=== PATIENT | male | born 1985 | race Caucasian/White ===

== ENCOUNTER → 2017-03-20 | Outpatient (REF) | payer BC | LOC: M SMT 13:15 | DX: Z30.09 Encounter for other general counseling and advice on contraception (principal) ==

== ENCOUNTER → 2017-04-22 | Outpatient (REF) | payer BC ==
[2017-04-22 09:44] LABS: SEMEN APPEARANCE OPAQUE (OPAQUE); SEMEN VISCOSITY LIQUID (LIQUID); SEMEN VOLUME 2.5 ml (4.0-5.0); SEMEN pH 8.5 (7.0-8.0)
[2017-04-22 09:45] LABS: IMMMOTILE SPERM CENTRIFUGED PRESENT (ABSENT); IMMOTILE SPERM PRESENT (ABSENT); MOTILE SPERM ABSENT (ABSENT); MOTILE SPERM CENTRIFUGED ABSENT (ABSENT); WBC CONCENTRATION <=1 M/ml (<=1 M/ml)
== END ==
LOC: M SMT 09:14
DX: Z30.09 Encounter for other general counseling and advice on contraception (principal)
CPT/HCPCS: 89321

== ENCOUNTER → 2017-07-19 | Outpatient (REF) | payer BC ==
[2017-07-19 10:13] LABS: IMMMOTILE SPERM CENTRIFUGED ABSENT (ABSENT); IMMOTILE SPERM ABSENT (ABSENT); MOTILE SPERM ABSENT (ABSENT); MOTILE SPERM CENTRIFUGED ABSENT (ABSENT); SEMEN APPEARANCE OPAQUE (OPAQUE); SEMEN VISCOSITY LIQUID (LIQUID); SEMEN VOLUME 2.5 ml (4.0-5.0); SEMEN pH 8.5 (7.0-8.0); SPERM ABNORMAL FORMS WBC'S NOTED; WBC CONCENTRATION >1 M/ml (<=1 M/ml)
== END ==
LOC: M SMT 09:57
DX: Z98.52 Vasectomy status (principal)
CPT/HCPCS: 89321

== ENCOUNTER 2017-12-02 11:23 | Day surgery (SDC) | payer BC ==
[2017-12-02] MEDS: LR 1,000 ML IV (11:50)
[2017-12-02] MEDS ORDERED: ROCURONIUM BROMIDE 50 MG/5 ML VIAL As Ordered (13:09)
[2017-12-02] MEDS ORDERED: LIDOCAINE 2% INJ 100 MG/5 ML SDV (FOR ANES.) As Ordered (13:09)
[2017-12-02] MEDS ORDERED: PROPOFOL 200 MG/20 ML VIAL As Ordered (13:09)
[2017-12-02] MEDS ORDERED: MIDAZOLAM INJ 2 MG/2 ML VIAL (J2250) As Ordered ×2 (13:10→15:09)
[2017-12-02] MEDS ORDERED: fentaNYL 100 MCG/2 ML INJECTION (J3010) As Ordered (13:10)
[2017-12-02] MEDS: CETACAINE SPRAY 5GM As Ordered (15:22)
[2017-12-02] MEDS ORDERED: SUGAMMADEX SODIUM 500 MG/5 ML VIAL (BRIDION) As Ordered (15:29)
[2017-12-02] MEDS ORDERED: ONDANSETRON 4MG/2ML VIAL (J2405) As Ordered (15:53)
[2017-12-02] MEDS ORDERED: dexameTHASONE 4 MG/ML 1ML VIAL (J1100) As Ordered (15:53)
[2017-12-02] MEDS ORDERED: KETOROLAC 60 MG/2 ML VIAL (J1885) As Ordered (15:53)
[2017-12-02] MEDS ORDERED: LR 1,000 ML IV ×2 (16:30→16:45)
[2017-12-02] MEDS ORDERED: NORCO, ANEXSIA 5/325MG TABLET (HYDROcodone/ACETAMINOPHEN) PO (16:45)
[2017-12-02] MEDS ORDERED: fentaNYL 100 MCG/2 ML INJECTION (J3010) IV (16:45)
[2017-12-02] MEDS ORDERED: ONDANSETRON 4MG/2ML VIAL (J2405) IV (16:45)
== END 2017-12-02 17:13 | disposition home or self-care (01) ==
LOC: M SDC 17:13
DX: D14.1 Benign neoplasm of larynx (principal); R06.83 Snoring
CPT/HCPCS: 31535

== ENCOUNTER 2018-02-24 06:45 | Day surgery (SDC) | payer BC ==
[~2018-02-24] VITALS: Ht 177.8 cm; Wt 81.6 kg
[2018-02-24] MEDS ORDERED: EXCETAB81 PO (07:45)
[2018-02-24] MEDS ORDERED: PROPOFOL 200 MG/20 ML VIAL As Ordered ONE ×3 (08:00→09:43)
[2018-02-24] MEDS ORDERED: dexameTHASONE 4 MG/ML 1ML VIAL (J1100) As Ordered ONE (08:00)
[2018-02-24] MEDS ORDERED: ROCURONIUM BROMIDE 50 MG/5 ML VIAL As Ordered ONE (08:00)
[2018-02-24] MEDS ORDERED: ONDANSETRON 4MG/2ML VIAL (J2405) As Ordered ONE (08:00)
[2018-02-24] MEDS ORDERED: LIDOCAINE 2% INJ 100 MG/5 ML SDV (FOR ANES.) As Ordered ONE (08:00)
[2018-02-24] MEDS ORDERED: fentaNYL 100 MCG/2 ML INJECTION (J3010) As Ordered ONE (08:00)
[2018-02-24] MEDS ORDERED: MIDAZOLAM INJ 2 MG/2 ML VIAL (J2250) As Ordered ONE (08:00)
[2018-02-24] MEDS ORDERED: SUGAMMADEX SODIUM 500 MG/5 ML VIAL (BRIDION) As Ordered ONE (08:07)
[2018-02-24] MEDS ORDERED: CETACAINE SPRAY 5GM As Ordered ONE (08:36)
[2018-02-24] MEDS ORDERED: OXYMETAZOLINE NASAL SPRAY (AFRIN) As Ordered ONE (08:47)
[2018-02-24] MEDS ORDERED: GLYCOPYRROLATE INJ 0.2 MG/ML 2 ML VIAL As Ordered ONE (08:50)
[2018-02-24] MEDS ORDERED: REMIFENTANIL 1MG 3ML VIAL As Ordered ONE (08:53)
[2018-02-24] MEDS ORDERED: NALOXONE INJ 0.4 MG/1 ML VIAL (J2310) As Ordered ONE (09:56)
[2018-02-24] MEDS ORDERED: fentaNYL 100 MCG/2 ML INJECTION (J3010) IV PRN (10:15)
[2018-02-24] MEDS ORDERED: PERCOCET 5MG/325MG TAB PO PRN (10:15)
[2018-02-24] MEDS ORDERED: ONDANSETRON 4MG/2ML VIAL (J2405) IV PRN (10:15)
[2018-02-24] MEDS ORDERED: HYDROMORPHONE HCL 0.5 MG/ 0.5 ML SYRINGE (J1170 PER 1) IV PRN (10:15)
[2018-02-24] MEDS ORDERED: LR 1,000 ML IV SCH ×2 (10:15)
[2018-02-24] MEDS ORDERED: SUCCINYLCHOLINE 100 MG/5 ML SYRINGE (J0330) As Ordered ONE (10:19)
[2018-02-24 11:55] VITALS: BP 12/88
--- NOTE | 2018-02-24 15:01 | RO ---
DATE OF PROCEDURE: 02/24/2018 PREOPERATIVE DIAGNOSIS: Laryngeal papillomatosis. POSTOPERATIVE DIAGNOSIS: Laryngeal papillomatosis. OPERATIVE PROCEDURE: Direct laryngoscopy and removal of papilloma with CO2 laser. SURGEON: Bravo Peres MD FAST FOOD SHIFT SUPERVISOR: FINDINGS: DESCRIPTION OF PROCEDURE: Under general anesthesia with the patient supine, the patient draped in the usual manner. I then inserted the laryngoscope using a dental guard. I positioned into place. I then hooked up the Rhodes-Venturi apparatus so the patient could be ventilated during the procedure. I then put on some wet sponges to prevent any damage to the skin with the laser. Once that was done, the microscope was positioned into place. Using the CO2 laser at 8 mcnulty continuous, then I lasered off the papilloma from the left vocal cord. There was a small amount on the right side. There was not a lot of papilloma tissue like there was in the past. The patient tolerated the procedure well. The patient was then transferred to the recovery room and extubated after I removed the laryngoscope and terminated the procedure.
== END 2018-02-24 12:05 | disposition home or self-care (01) ==
LOC: M SDC 06:45
PROVIDERS: ATTEND Otolaryngology
DX: D14.1 Benign neoplasm of larynx (principal); Z87.891 Personal history of nicotine dependence
CPT/HCPCS: 31535; J0330; J1100; J2250; J2310; J2405; J3010

== ENCOUNTER → 2018-05-08 | Outpatient (REF) | payer OTHER, BC ==
[~2018-05-08] MED LIST: AUGM875T28 PO; EXCETAB81 PO; OCUF0.25 OD
[2018-05-08 12:47] LABS: BASO % 0.8 % (0.0-1.0); EOS # 0.2 10^3/uL (0.0-0.50); EOS % 2.9 % (0.0-3.0); HEMATOCRIT 45.6 % (42.0-52.0); HEMOGLOBIN 15.5 g/dl (13.5-17.5); LYMPH # 2.4 10^3/uL (1.5-4.5); LYMPH % 46.2 % (24.0-44.0); MEAN CORPUSCULAR HEMOGLOBIN 29.3 pg (27.0-33.0); MEAN CORPUSCULAR VOLUME 86.2 fl (80.0-96.0); MONO # 0.7 10^3/uL (0.0-0.8); NEUTROPHILS # 1.9 10^3/uL (1.8-7.7); NEUTROPHILS % 37.1 % (36.0-66.0); PLATELET COUNT, AUTOMATED 262 10^3/uL (150-450); RED BLOOD COUNT 5.29 10^6/uL (4.30-6.10); WHITE BLOOD COUNT 5.2 10^3/uL (4.0-10.0)
[2018-05-08 12:52] LABS: ALBUMIN 4.7 GM/DL (3.2-5.2); ALT/SGPT 24 U/L (12-78); BILIRUBIN,TOTAL 0.9 MG/DL (0.2-1.0); BLOOD UREA NITROGEN 10 MG/DL (7-18); CALCIUM LEVEL 9.4 MG/DL (8.5-10.1); CARBON DIOXIDE LEVEL 29 MEQ/L (21-32); CHLORIDE LEVEL 104 MEQ/L (98-107); CREATININE FOR GFR 0.82 MG/DL (0.70-1.30); GLOMERULAR FILTRATION RATE > 60.0 (>60); GLUCOSE, FASTING 84 MG/DL (70-100); POTASSIUM SERUM 4.1 MEQ/L (3.5-5.1); SODIUM LEVEL 140 MEQ/L (136-145); TOTAL PROTEIN 7.7 GM/DL (6.4-8.2)
== END ==
LOC: M LABDRWAD 12:15
PROVIDERS: ATTEND Physician Assistant
DX: A08.4 Viral intestinal infection, unspecified (principal)

== ENCOUNTER → 2018-12-08 | Outpatient (CLI) | payer BC ==
[~2018-12-08] MED LIST changes: +NAPR-837 PO; +NAPR500T6 PO; +OMEP40CA97 PO; +ROBA750T4 PO
--- NOTE | 2018-12-08 11:25 | REP ---
Clinical: Contusion with thoracic pain. Technique: AP, lateral, and swimmers views. Findings: Alignment and kyphosis is maintained. Vertebral bodies intact. No acute fracture / compression injury or subluxation. No degenerative changes. Paravertebral soft tissues are normal. Impression: Normal thoracic spine series. Electronically Signed by Vahe Desir MD 12/08/2018 11:16 A
--- NOTE | 2018-12-08 11:26 | REP ---
Clinical: Contusion and neck pain . Technique: AP, lateral, and open-mouth views of the cervical spine. Findings: Alignment and lordosis is maintained. There is no evidence for acute fracture / compression injury or subluxation. No significant degenerative changes are appreciated. Open mouth view demonstrates normal C1-C2 articulation and odontoid process. Impression: Normal cervical spine series. Electronically Signed by Vahe Desir MD 12/08/2018 11:17 A
== END ==
LOC: M ADAMS 10:54
PROVIDERS: ATTEND Physician Assistant
DX: S10.83XA Contusion of other specified part of neck, initial encounter (principal); S20.20XA Contusion of thorax, unspecified, initial encounter; X58.XXXA Exposure to other specified factors, initial encounter; Y92.9 Unspecified place or not applicable

== ENCOUNTER 2018-12-09 04:42 | Emergency (ER) | payer BC ==
[~2018-12-09] VITALS: Ht 177.8 cm; Wt 79.5 kg
[~2018-12-09 04:42] MED LIST changes: -NAPR-837 PO; -NAPR500T6 PO; -OMEP40CA97 PO; -ROBA750T4 PO
[2018-12-09] MEDS ORDERED: KETOROLAC 30 MG/ML VIAL (J1885) IV ONE (05:30)
[2018-12-09] MEDS ORDERED: METHOCARBAMOL 1,000 MG/10 ML VIAL (J2800) IV ONE (05:30)
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
[2018-12-09 06:49] VITALS: BP 135/89
[2018-12-09] MEDS ORDERED: NAPR-837 PO (06:49)
[2018-12-09] MEDS ORDERED: ROBA750T4 PO (06:49)
[2018-12-10] MEDS ORDERED: OMEP40CA97 PO (12:34)
[2018-12-10] MEDS ORDERED: ROBA750T4 PO (12:42)
[2018-12-10] MEDS ORDERED: NAPR500T6 PO (12:42)
== END 2018-12-09 07:10 | disposition home or self-care (01) ==
LOC: M ED 04:42
DX: M54.2 Cervicalgia (principal)
CPT/HCPCS: 72125; 96374; 99284; J1885; J2800

== ENCOUNTER 2019-01-15 07:41 | Day surgery (SDC) | payer BC ==
[~2019-01-15] VITALS: Ht 177.8 cm; Wt 81.6 kg
[~2019-01-15 07:41] MED LIST changes: +LR 1,000 ML IV ONE; +NAPR-837 PO; +NAPR500T6 PO; +OMEP40CA97 PO; +ROBA750T4 PO
[2019-01-15] MEDS ORDERED: CETACAINE SPRAY 5GM As Ordered ONE (10:27)
[2019-01-15] MEDS ORDERED: ROCURONIUM BROMIDE 50 MG/5 ML VIAL As Ordered ONE (10:37)
[2019-01-15] MEDS ORDERED: ONDANSETRON 4MG/2ML VIAL (J2405) As Ordered ONE (10:37)
[2019-01-15] MEDS ORDERED: PROPOFOL 200 MG/20 ML VIAL As Ordered ONE ×3 (10:37→11:23)
[2019-01-15] MEDS ORDERED: METOCLOPRAMIDE INJ 10MG/2ML VIAL (J2765) As Ordered ONE (10:37)
[2019-01-15] MEDS ORDERED: MIDAZOLAM INJ 2 MG/2 ML VIAL (J2250) As Ordered ONE (10:37)
[2019-01-15] MEDS ORDERED: dexameTHASONE 4 MG/ML 1ML VIAL (J1100) As Ordered ONE (10:37)
[2019-01-15] MEDS ORDERED: fentaNYL 100 MCG/2 ML INJECTION (J3010) As Ordered ONE ×2 (10:37→11:18)
[2019-01-15] MEDS ORDERED: SUGAMMADEX SODIUM 500 MG/5 ML VIAL (BRIDION) As Ordered ONE (10:37)
[2019-01-15] MEDS ORDERED: LIDOCAINE 2% INJ 100 MG/5 ML SDV (FOR ANES.) As Ordered ONE (10:37)
--- NOTE | 2019-01-15 11:53 | RO ---
DATE OF PROCEDURE: 01/15/2019 PREOPERATIVE DIAGNOSIS: Papilloma right vocal cord. POSTOPERATIVE DIAGNOSIS: Papilloma right vocal cord. OPERATIVE PROCEDURE: Direct laryngoscopy, biopsy right vocal cord, and CO2 laser both vocal cords. SURGEON: Bravo Peres MD COUNTER HELP: ANESTHESIA: FINDINGS: There was a papilloma anterior aspect of the right vocal cord. There was tiny papillomatous changes to the anterior one-half of the left vocal cord. DESCRIPTION OF PROCEDURE: Under general anesthesia with the patient supine, I inserted the laryngoscope. I used the jet ventilation during the procedure. I started first by using forceps to grab the papilloma. I used scissors to divide some of the mucosa inferiorly or posteriorly and then the laser to go around it. I removed it actually in piecemeal. Once this was done, there was no evidence of any further papilloma. There was this papillomatous change of the surface of the left cord anteriorly, and so I used CO2 laser to laser this off. The patient tolerated the procedure well. CO2 laser was used in the setting of 8 mcnulty continuous. No complications. No bleeding. The patient transferred to the recovery room in excellent condition.
[2019-01-15] MEDS ORDERED: LR 1,000 ML IV SCH ×2 (12:15)
[2019-01-15] MEDS ORDERED: fentaNYL 100 MCG/2 ML INJECTION (J3010) IV PRN (12:15)
[2019-01-15] MEDS ORDERED: ONDANSETRON 4MG/2ML VIAL (J2405) IV PRN (12:15)
[2019-01-15] MEDS ORDERED: oxyCODONE 5MG TAB PO PRN (12:15)
[2019-01-15 13:35] VITALS: BP 117/76
== END 2019-01-15 13:50 | disposition home or self-care (01) ==
LOC: M SDC 07:41
PROVIDERS: ATTEND Otolaryngology
DX: D14.1 Benign neoplasm of larynx (principal)
CPT/HCPCS: 31540; 88305; J1100; J2250; J2405; J2765; J3010

== ENCOUNTER → 2022-10-19 | Outpatient (CLI) | payer BC ==
[~2022-10-19] MED LIST changes: -LR 1,000 ML IV ONE; +OMEP40CA4 PO; -OMEP40CA97 PO
[2022-10-19 09:29] LABS: BASO # 0.1 10^3/uL (0.0-0.2); BASO % 0.9 % (0.0-1.0); EOS # 0.1 10^3/uL (0.0-0.5); EOS % 1.7 % (0.0-3.0); HEMATOCRIT 48.9 % (42.0-52.0); HEMOGLOBIN 16.5 g/dl (13.5-17.5); LYMPH # 2.9 10^3/uL (1.5-5.0); LYMPH % 45.2 % (24.0-44.0); MEAN CORPUSCULAR HEMOGLOBIN 29.6 pg (27.0-33.0); MEAN CORPUSCULAR HGB CONC 33.7 g/dl (32.0-36.5); MEAN CORPUSCULAR VOLUME 87.8 fl (80.0-96.0); MONO # 0.6 10^3/uL (0.0-0.8); MONO % 9.5 % (2.0-8.0); NEUTROPHILS # 2.7 10^3/uL (1.5-8.5); NEUTROPHILS % 42.2 % (36.0-66.0); PLATELET COUNT, AUTOMATED 263 10^3/uL (150-450); RED BLOOD COUNT 5.57 10^6/uL (4.30-6.10); WHITE BLOOD COUNT 6.4 10^3/uL (4.0-10.0)
[2022-10-19 10:06] LABS: ALBUMIN 4.5 G/DL (3.2-5.2); ALKALINE PHOSPHATASE 58 U/L (46-116); ALT/SGPT 20 U/L (7.0-40); AST/SGOT 12 U/L (<34); BLOOD UREA NITROGEN 10 MG/DL (9-23); CALCIUM LEVEL 9.4 MG/DL (8.5-10.1); CARBON DIOXIDE LEVEL 28 MMOL/L (20-31); CHLORIDE LEVEL 101 MMOL/L (98-107); CREATININE FOR GFR 0.73 MG/DL (0.70-1.30); FREE T4 1.18 NG/DL (0.89-1.76); GLOMERULAR FILTRATION RATE > 60.0 (>60); GLUCOSE, FASTING 88 MG/DL (60-100); POTASSIUM SERUM 3.7 MMOL/L (3.5-5.1); SODIUM LEVEL 138 MMOL/L (136-145); THYROID STIMULATING HORMONE 1.166 uIU/ML (0.55-4.78)
== END ==
LOC: M WUC 08:08
PROVIDERS: ATTEND Registered Nurse
DX: F41.1 Generalized anxiety disorder (principal)